=== PATIENT | male | born 2000 | race Caucasian/White ===

== ENCOUNTER 2021-01-16 12:31 | Emergency (ER) | payer BC, SELFPAY ==
--- NOTE | 2021-01-16 12:48 | ED.URI ---
HPI - URI/Sore Throat General Chief Complaint: Upper Respiratory Infection Stated Complaint: Sore Throat,Chest Congestion Time Seen by Provider: 01/16/21 12:48 Source: patient and RN notes reviewed Mode of arrival: ambulatory Limitations: no limitations History of Present Illness HPI Narrative: 20-year-old male presents to the [facility] with I think I have a sinus infection. Complaints of sore throat, nasal drainage, chest congestion, sinus congestion and a headache for the last week. Getting worse over the last 2 to 3 days. Patient denies any sick contacts, states that he had Covid 1 year ago, fully vaccinated with second Covid vaccine in June or July 2020. Patient denies any past medical or surgical history. MD elicited complaint: cough and sore throat Related Data Allergies Allergy/AdvReac Type Severity Reaction Status Date / Time No Known Allergies Allergy Verified 01/16/21 12:59 Review of Systems Review of Systems: All systems reviewed & are unremarkable except as noted in HPI and below Constitutional: Constitutional: Reports no additional constitutional complaints, Denies chills and Denies fever(s) Eyes: Eyes: Reports no additional eye complaints ENT: Denies dizziness, Reports nasal congestion and Reports sore throat Cardiovascular: Cardiovascular: Reports no additional cardiovascular complaints and Denies chest pain Respiratory: Respiratory: Reports as per HPI, Reports chest congestion, Denies cough, Denies dyspnea and Denies wheezing Gastrointestinal: Gastrointestinal: Reports no additional gastrointestinal complaints, Denies abdominal pain, Denies nausea and Denies vomiting Genitourinary: Genitourinary: Reports no additional male genitourinary complaints Musculoskeletal: Musculoskeletal: Reports no additional musculoskeletal complaints Integumentary/Breasts: Skin/Breast: Reports system reviewed and no additional complaints, except as docu Neurologic: Reports system reviewed and no additional complaints, except as documented Psychiatric: Psychiatric: Reports no additional psychiatric complaints Allergic/Immunologic: Allergic/Immunologic: Reports no additional allergic/immunologic complaints PMFSH Past Medical History Medical History Patient denies medical problems Surgical History Surgical History (Updated 01/16/21 @ 13:01 by Antonietta Sweeney) No significant past surgical history Social History Social History (Updated 01/16/21 @ 13:02 by Antonietta Sweeney) Occupation/Education: student Gender identity (if verbalized by the patient): Male Comments At the time of my signature, I reviewed and agree with the nursing past medical, surgical, social, and family history. There is no relevant family history pertinent to the patient complaint. Exam Const: General: no acute distress, alert and ill appearing acutely Nutritional Appearance: well nourished Orientation/consciousness: patient oriented x3 Limitations: no limitations HENMT: Head: normal to inspection Ears: external ears normal, TM's normal bilaterally and EAC's normal Face and sinus: normal facial exam and face symmetric Mouth: Yes lip normal Throat: tonsils normal, uvula midline, no peritonsillar masses, posterior oropharynx abnormal erythema, postnasal drainage, uvula not displaced and no uvular edema Eyes: Conjunctivae: conjunctivae normal Pupils: Equal, round and reactive pupils present Neck: Neck: normal visual inspection and lymphadenopathy submandibular soft, mobile and tender Chest: Chest palpation & inspection: normal inspection of the chest Resp: Effort & Inspection: normal respiratory effort and no use of accessory muscles Auscultation: clear to auscultation bilaterally, no crackles, no rales, no rhonchi and no wheezes Cardio: Rate: tachycardic Rhythm: regular rhythm GI: GI Palp: Yes Soft to palpation and No Tenderness to palpation present (GI) Back/Spine/Pelvis: Back:
[2021-01-16 12:54] VITALS: BP 124/72; PULSE 107; RESP 18; TEMP 38; O2SAT 100
[2021-01-16 13:05] VITALS: TEMP 38
[2021-01-16] MEDS: ACETAMINOPHEN 500 MG TABLET 1000 MG PO (13:05)
[2021-01-16 13:27] VITALS: BP 150/66; PULSE 104; RESP 16; TEMP 37.9; O2SAT 100
== END 2021-01-16 13:34 | disposition home or self-care (01) ==
PROVIDERS: Emergency Provider Nurse Practitioner
DX: R59.1 Generalized enlarged lymph nodes (principal); J02.9 Acute pharyngitis, unspecified; Z20.822 Contact with and (suspected) exposure to COVID-19; Z86.16 Personal history of COVID-19
CPT/HCPCS: 87081; 87426; 87804; 87880; 99213; A9270; C9803; G0463